=== PATIENT | female | born 1985 | race Caucasian/White ===

== ENCOUNTER 2023-05-28 10:30 | Outpatient (CLI) | payer BC, SELFPAY ==
--- NOTE | 2023-05-28 10:45 | CRLHL7_ITS ---
For Patients: As a result of the Century Cures Act, medical imaging exams and procedure reports are released immediately into your electronic medical record. You may view this report before your referring provider. If you have questions, please contact your health care provider. DIAGNOSTIC BILATERAL BREAST MAMMOGRAM WITH COMPUTER-AIDED DETECTION AND TOMOSYNTHESIS LEFT BREAST ULTRASOUND CLINICAL HISTORY: LEFT breast pain. COMPARISON: None TECHNIQUE: Digital BILATERAL mammogram in 4 projections. Computer-aided detection and tomosynthesis were used. Real-time ultrasound imaging of LEFT breast with imaging documentation. BREAST COMPOSITION: The breasts are heterogeneously dense, which may obscure small masses FINDINGS: 3D CC/MLO BILATERAL mammogram images submitted. No suspicious masses or architectural distortion. No suspicious calcifications or adenopathy. Targeted LEFT breast ultrasound performed 3-6 o`clock 5 cm from the nipple. Normal fibroglandular tissue is present. No suspicious findings. IMPRESSION: Normal BILATERAL mammograms and normal targeted LEFT breast ultrasound. RECOMMENDATIONS: Clinical follow-up. Age appropriate screening mammography. BI-RADS Category 2: Benign Results and recommendations discussed with the patient. A lay language report of this examination will be provided to the patient. Dictated by: Simba Taylor MD @05/28/2023 12:19:43 PM/charlie OSIEL/Dictated by: Simba Taylor MD @ 05/28/2023 7:34:00 PM (Electronically Signed)
--- NOTE | 2023-05-28 11:15 | CRLHL7_ITS ---
For Patients: As a result of the Century Cures Act, medical imaging exams and procedure reports are released immediately into your electronic medical record. You may view this report before your referring provider. If you have questions, please contact your health care provider. PLEASE SEE BILATERAL BREAST DIAGNOSTIC MAMMOGRAM OF SAME DAY. CRL:[email or web address] OSIEL/Dictated by: Simba Taylor MD @ 05/28/2023 12:19:00 PM (Electronically Signed)
== END 2023-05-28 10:31 | disposition home or self-care (01) ==
LOC: MAMMO 10:34
PROVIDERS: PCP Family Medicine; Visit Provider Family Medicine
DX: N64.4 Mastodynia (principal)
CPT/HCPCS: 76642; 77066; G0279